=== PATIENT | female | born 1985 | race Caucasian/White ===

== ENCOUNTER 2021-05-02 08:21 | Inpatient (IN) | payer BC ==
[2021-05-02 09:27] LABS: #Lymphocytes 0.8 thou/uL (1.20-3.40); #Monocytes 1.1 thou/uL (0.11-0.59); %Eosinophils 0.2 % (0.0-10.0); %Lymphocytes 6.3 % (21.0-51.0); %Monocytes 8.2 % (0.0-10.0); %Neutrophils 85.3 % (42.0-75.0); Hemoglobin 12.8 g/dL (12.0-16.0); Mean Corpuscular HGB CONC 33.2 g/dL (32.0-36.0); Mean Corpuscular Volume 90.5 fL (78.0-98.0); Mean Platelet Volume 6.6 fL (7.4-10.4); Platelet Count 223 thou/uL (130-400); RBC Distribution Width 11.6 % (11.5-14.5); Red Blood Cell (RBC) Count 4.26 mill/uL (4.20-5.40); White Blood Cell (WBC) Count 12.9 thou/uL (4.8-10.8)
[2021-05-02] MEDS ORDERED: Iopamidol-370 76% 500 ML 1 ML ONE (09:29)
[2021-05-02] MEDS ORDERED: Ketorolac Tromethamine 30 MG/ML VIAL ONE (09:32)
[2021-05-02 09:52] LABS: ALT (SGPT) 9 U/L (8-55); AST (SGOT) 11 U/L (5-34); Albumin 3.8 g/dL (3.5-5.0); Alkaline Phosphatase 37 U/L (40-110); Anion Gap 11 mmol/L (10-20); BUN (Urea Nitrogen) 7 mg/dL (7.0-18.7); Bilirubin, Total 1.1 mg/dL (0.2-1.2); Calc. Creatinine Clearance 0 mL/min (70-130); Calcium 8.6 mg/dL (7.8-10.44); Carbon Dioxide 21 mmol/L (22-29); Chloride 108 mmol/L (98-107); Globulin 2.6 g/dL (2.4-3.5); Glucose 97 mg/dL (70-105); Potassium 3.8 mmol/L (3.5-5.1); Protein, Total 6.4 g/dL (6.0-8.3); Sodium 136 mmol/L (136-145)
[2021-05-02 11:16] LABS: BHCG - Serum Negative (NEGATIVE); Pregs Control Background? CLEAR/WHITE (CLR/WHITE); Pregs Control Bar Appear? YES (CONTROL BAR)
[2021-05-02 11:20] LABS: Bilirubin Negative (Negative); Blood, Urine 1+ (Negative); Clarity Clear (Clear); Glucose, Urine (Dipstick) Normal (Negative); Ketone, Urine 100 mg/dL (Negative); Leukocyte Negative Leu/uL (Negative); Nitrite Negative (Negative); Pregnancy Test - Urine (BHCG) Negative (Negative); Pregu Control Background? CLEAR/WHITE (CLR/WHITE); Pregu Control Bar Appear? YES (CONTROL BAR); Protein, Urine (Dipstick) 10 mg/dL (Neg-Trace); RBC/HPF 0-3 HPF (0-3); Specific Gravity 1.023 (1.002-1.036); Specific Gravity, Urine 1.023 (1.002-1.036); Squamous Epithelial 0-3 HPF (0-3); Urobilinogen Normal mg/dL (Less than 2); WBC/HPF 0-3 HPF (0-3); pH, Urine 5.5 (5.0-9.0)
[2021-05-02 11:21] LABS: Bacteria/HPF Rare-Few HPF (None Seen)
[2021-05-02] MEDS ORDERED: Ondansetron PF 4 MG/2 ML Vial ONE (13:41)
[2021-05-02] MEDS ORDERED: Vancomycin HCl 25 MG/ML Oral PO SCH (13:45)
[2021-05-02] MEDS ORDERED: Hydrocortisone Acetate 25 MG Suppository PR PRN (15:05)
[2021-05-02 15:11] LABS: Phosphorus 2.5 mg/dL (2.3-4.7)
[2021-05-02] MEDS ORDERED: Calcium Carbonate 500 MG ChewTAB PO PRN (15:11)
[2021-05-02] MEDS ORDERED: Ondansetron ODT 4 MG TAB PO PRN (15:11)
[2021-05-02 15:13] LABS: CRP (Inflammatory) 6.53 mg/dL (= or < 0.5); Magnesium 1.8 mg/dL (1.6-2.6)
[2021-05-02] MEDS ORDERED: Morphine 2 MG/ML VIAL SLOW IVP PRN (15:17)
[2021-05-02] MEDS ORDERED: Magnesium 2 GM/50 ML 2 GM in Premix Bag 1 BAG IVPB SCH (15:30)
[2021-05-02] MEDS ORDERED: metroNIDAZOLE 500 MG in Premix Bag 1 BAG IVPB SCH (16:00)
[2021-05-02] MEDS: NS 0.9% w/ 20 MEQ KCL 1,000 ML/1,000 ML BAG IV SCH ×2 (19:38→22:27)
[2021-05-02 19:39] VITALS: BMI 23.2
[2021-05-02] MEDS: metroNIDAZOLE 500 MG in Premix Bag 1 BAG IVPB SCH (19:39)
[2021-05-02] MEDS: Acetaminophen 325 MG TAB PO PRN (19:45)
[2021-05-02] MEDS: Saccharomyces boulardii 250 MG CAP PO SCH (21:39)
[2021-05-02] MEDS: Famotidine/PF 20 mg/2ml Vial SLOW IVP SCH (21:39)
[2021-05-02] MEDS: Famotidine 20 MG TAB PO SCH (21:39)
[2021-05-02] MEDS: Vancomycin HCl 25 MG/ML Oral PO SCH ×2 (21:39→23:47)
[2021-05-03] MEDS: metroNIDAZOLE 500 MG in Premix Bag 1 BAG IVPB SCH ×3 (02:14→16:52)
[2021-05-03] MEDS: NS 0.9% w/ 20 MEQ KCL 1,000 ML/1,000 ML BAG IV SCH (03:13)
[2021-05-03] MEDS: Vancomycin HCl 25 MG/ML Oral PO SCH ×4 (05:52→21:07)
[2021-05-03 06:08] LABS: #Lymphocytes 0.9 thou/uL (1.20-3.40); #Monocytes 0.6 thou/uL (0.11-0.59); #Neutrophils 5.6 thou/uL (1.40-6.50); %Basophils 0.5 % (0.0-1.0); %Eosinophils 0.5 % (0.0-10.0); %Lymphocytes 12.4 % (21.0-51.0); %Monocytes 8.5 % (0.0-10.0); %Neutrophils 78.1 % (42.0-75.0); Hemoglobin 11.1 g/dL (12.0-16.0); Mean Corpuscular HGB CONC 34.3 g/dL (32.0-36.0); Mean Corpuscular Volume 90.4 fL (78.0-98.0); Mean Platelet Volume 6.7 fL (7.4-10.4); Platelet Count 170 thou/uL (130-400); RBC Distribution Width 11.5 % (11.5-14.5); Red Blood Cell (RBC) Count 3.59 mill/uL (4.20-5.40); White Blood Cell (WBC) Count 7.2 thou/uL (4.8-10.8)
[2021-05-03 06:29] LABS: ALT (SGPT) 9 U/L (8-55); AST (SGOT) 10 U/L (5-34); Alkaline Phosphatase 32 U/L (40-110); Anion Gap 13 mmol/L (10-20); BUN (Urea Nitrogen) 8 mg/dL (7.0-18.7); Bilirubin, Total 0.6 mg/dL (0.2-1.2); Calc. Creatinine Clearance 108 mL/min (70-130); Calcium 7.7 mg/dL (7.8-10.44); Carbon Dioxide 12 mmol/L (22-29); Chloride 115 mmol/L (98-107); Globulin 2.2 g/dL (2.4-3.5); Potassium 4.8 mmol/L (3.5-5.1); Protein, Total 5.2 g/dL (6.0-8.3); Sodium 135 mmol/L (136-145)
[2021-05-03 06:32] LABS: Glucose 54 mg/dL (70-105)
[2021-05-03] MEDS ORDERED: Dextrose 50% Abboject 50 ML SYRINGE SLOW IVP SCH (06:45)
[2021-05-03] MEDS: Saccharomyces boulardii 250 MG CAP PO SCH ×2 (07:20→21:07)
[2021-05-03] MEDS: Famotidine/PF 20 mg/2ml Vial SLOW IVP SCH (07:20)
[2021-05-03] MEDS ORDERED: Prevnar 13-Val Conj/PF 0.5 ML SYRINGE IM ONE (09:00)
[2021-05-03] MEDS: Sodium Bicarbonate 150 MEQ in Dextrose 5% in Water 1,000 ML IV SCH ×3 (10:07→21:07)
[2021-05-03] MEDS: Famotidine 20 MG TAB PO SCH ×2 (10:27→21:07)
[2021-05-03] MEDS: Acetaminophen 325 MG TAB PO PRN (16:52)
[2021-05-03] MEDS: Ondansetron PF 4 MG/2 ML Vial IVP PRN (16:53)
[2021-05-03] MEDS ORDERED: Potassium Citrate 10 MEQ TAB PO SCH (17:00)
[2021-05-03 17:27] LABS: Anion Gap 11 mmol/L (10-20); BUN (Urea Nitrogen) 5 mg/dL (7.0-18.7); Calc. Creatinine Clearance 94 mL/min (70-130); Calcium 8.3 mg/dL (7.8-10.44); Carbon Dioxide 22 mmol/L (22-29); Chloride 109 mmol/L (98-107); Glucose 101 mg/dL (70-105); Potassium 3.8 mmol/L (3.5-5.1); Sodium 138 mmol/L (136-145)
[2021-05-03] MEDS ORDERED: Electrolyte Replacement Protocol 1 EACH FS SCH (20:15)
[2021-05-03] MEDS ORDERED: Electrolyte Replacement Protocol FS PRN (20:15)
[2021-05-04] MEDS: metroNIDAZOLE 500 MG in Premix Bag 1 BAG IVPB SCH ×3 (00:42→16:23)
[2021-05-04] MEDS: Acetaminophen 325 MG TAB PO PRN (00:42)
[2021-05-04] MEDS: Vancomycin HCl 25 MG/ML Oral PO SCH ×3 (04:21→18:06)
[2021-05-04] MEDS: Ondansetron PF 4 MG/2 ML Vial IVP PRN ×4 (05:18→20:50)
[2021-05-04] MEDS ORDERED: Morphine 2 MG/ML VIAL SLOW IVP PRN (08:45)
[2021-05-04] MEDS: Saccharomyces boulardii 250 MG CAP PO SCH ×2 (08:46→20:50)
[2021-05-04] MEDS: Famotidine 20 MG TAB PO SCH (08:47)
[2021-05-04] MEDS ORDERED: Acetaminophen 325 MG TAB PO PRN (08:49)
[2021-05-04] MEDS: Ketorolac Tromethamine 30 MG/ML VIAL IVP PRN ×2 (09:26→16:23)
[2021-05-04 09:28] LABS: Anion Gap 11 mmol/L (10-20); BUN (Urea Nitrogen) 4 mg/dL (7.0-18.7); Calc. Creatinine Clearance 93 mL/min (70-130); Calcium 8.2 mg/dL (7.8-10.44); Carbon Dioxide 26 mmol/L (22-29); Chloride 107 mmol/L (98-107); Glucose 90 mg/dL (70-105); Potassium 3.7 mmol/L (3.5-5.1); Sodium 140 mmol/L (136-145)
[2021-05-04] MEDS: Sodium Bicarbonate 150 MEQ in Dextrose 5% in Water 1,000 ML IV SCH (13:09)
[2021-05-04] MEDS: NS 0.9% w/ 40 MEQ KCL 1,000 ML IV SCH (13:12)
[2021-05-04] MEDS: Famotidine/PF 20 mg/2ml Vial SLOW IVP SCH (20:51)
[2021-05-05] MEDS: Vancomycin HCl 25 MG/ML Oral PO SCH ×2 (00:01→05:47)
[2021-05-05] MEDS: metroNIDAZOLE 500 MG in Premix Bag 1 BAG IVPB SCH ×2 (00:01→09:49)
[2021-05-05] MEDS: NS 0.9% w/ 40 MEQ KCL 1,000 ML IV SCH (05:47)
[2021-05-05 05:51] LABS: #Eosinphils 0.1 thou/uL (0.0-0.7); #Lymphocytes 1.3 thou/uL (1.20-3.40); #Monocytes 0.7 thou/uL (0.11-0.59); %Basophils 0.1 % (0.0-1.0); %Eosinophils 1.8 % (0.0-10.0); %Lymphocytes 20.9 % (21.0-51.0); %Monocytes 11.4 % (0.0-10.0); %Neutrophils 65.8 % (42.0-75.0); Hemoglobin 10.8 g/dL (12.0-16.0); Mean Corpuscular HGB CONC 33.8 g/dL (32.0-36.0); Mean Corpuscular Hemoglobin 30.1 pg (27.0-31.0); Mean Corpuscular Volume 88.9 fL (78.0-98.0); Mean Platelet Volume 6.9 fL (7.4-10.4); Platelet Count 190 thou/uL (130-400); RBC Distribution Width 11.5 % (11.5-14.5); Red Blood Cell (RBC) Count 3.59 mill/uL (4.20-5.40); White Blood Cell (WBC) Count 6.1 thou/uL (4.8-10.8)
[2021-05-05 06:20] LABS: Anion Gap 11 mmol/L (10-20); BUN (Urea Nitrogen) 4 mg/dL (7.0-18.7); Calc. Creatinine Clearance 90 mL/min (70-130); Carbon Dioxide 22 mmol/L (22-29); Chloride 111 mmol/L (98-107); Glucose 75 mg/dL (70-105); Magnesium 1.6 mg/dL (1.6-2.6); Phosphorus 2.5 mg/dL (2.3-4.7); Potassium 3.9 mmol/L (3.5-5.1); Sodium 140 mmol/L (136-145)
[2021-05-05] MEDS ORDERED: Magnesium 2 GM/50 ML 2 GM in Premix Bag 1 BAG IVPB SCH (07:00)
[2021-05-05] MEDS: Famotidine/PF 20 mg/2ml Vial SLOW IVP SCH (07:24)
[2021-05-05] MEDS: Saccharomyces boulardii 250 MG CAP PO SCH (07:24)
[2021-05-05] MEDS: Ondansetron PF 4 MG/2 ML Vial IVP PRN (07:31)
[2021-05-05 07:42] VITALS: BP 105/68; TEMP 98.4
== END 2021-05-05 11:55 | disposition home or self-care (01) | DRG 872 ==
LOC: ERS 08:21 → T4-A 15:27
PROVIDERS: ADMIT Internal Medicine; ATTEND Internal Medicine
DX: A41.89 Other specified sepsis (principal); A04.72 Enterocolitis due to Clostridium difficile, not specified as recurrent; E87.2 Acidosis; E87.6 Hypokalemia; E83.42 Hypomagnesemia; E86.0 Dehydration; Z98.890 Other specified postprocedural states; Z88.1 Allergy status to other antibiotic agents; Z88.5 Allergy status to narcotic agent
CPT/HCPCS: 36415; 36416; 74177; 80048; 80053; 81003; 81015; 81025; 83605; 83735; 84100; 84703; 85025; 86140; 87040; 87086; 87324; 87449; 96372; 96374; 96375; J0500; J1885; J2405; J3475; J3480; J7070; Q9967; S0028